=== PATIENT | male | born 1995 | race Caucasian/White ===

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

== ENCOUNTER 2018-09-20 19:52 | Emergency (ER) | payer MEDICAID ==
[2018-09-20] MEDS ORDERED: predniSONE 20 MG TAB PO STA (22:12)
--- NOTE | 2018-09-20 22:31 | ED ---
Skin/Abscess/FB HPI - General Chief complaint: Skin/Abscess/Foreign Body Stated complaint: Rash, poss allergic reaction Time Seen by Provider: 09/20/18 21:34 Source: patient Mode of arrival: ambulatory Limitations: no limitations - History of Present Illness Initial comments: 23-year-old male who denies past several history presenting today for chief complaint of "I have poison nicole". 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 He states after handling some wood he noticed a vine of poison nicole, hanging off of it. He states he is certain this was the plant. Patient states it began as a small area on the face and the left forearm. He states it then spread across chest. Patient states she has been on a steroid taper in the past for severe poison nicole, and presents today for evaluation. Patient states that the areas are weeping. Denies significant surrounding erythema. He states is itchy. He states he knows he needs to change his sheets daily and clothing. Patient denies a fever, chills or night sweats. Patient denies any genital involvement. Remainder of ROS negative, patient denies any recent cough, shortness of breath, chest pain, back pain, abdominal pain, nausea or vomiting, numbness or tingling, dysuria or hematuria, constipation or diarrhea, headaches or visual changes, or any other complaints. - Related Data Previous Rx's Medication Instructions Recorded Sulfamethox-Tmp 800-160Mg [Bactrim 1 each PO Q12HR #20 tab 10/09/16 Ds] Triamcinolone 0.1% Cream [Kenalog 1 applicatio TOPICAL BID #30 gram 10/09/16 0.1% Cream] predniSONE 0 mg PO DIRECTED 21 Days #81 tab 09/20/18 Allergies Allergy/AdvReac Type Severity Reaction Status Date / Time No Known Allergies Allergy Verified 09/20/18 21:01 Review of Systems ROS Statement: Those systems with pertinent positive or pertinent negative responses have been documented in the HPI. ROS Other: All systems not noted in ROS Statement are negative. Past Medical History Past Medical History: No Reported History History of Any Multi-Drug Resistant Organisms: None Reported Past Surgical History: No Surgical Hx Reported Past Psychological History: No Psychological Hx Reported Smoking Status: Never smoker Past Alcohol Use History: None Reported Past Drug Use History: None Reported General Exam - General Exam Comments Initial Comments: General: The patient is awake and alert, in no distress, and does not appear acutely ill. Eye: Pupils are equal, round and reactive to light, extra-ocular movements are intact. No nystagmus. There is normal conjunctiva bilaterally. No signs of icterus. Ears, nose, mouth and throat: There are moist mucous membranes and no oral lesions. Neck: The neck is supple, there is no tenderness or JVD. Cardiovascular: There is a regular rate and rhythm. No murmur, rub or gallop is appreciated. Respiratory: Lungs are clear to auscultation, respirations are non-labored, breath sounds are equal. No wheezes, stridor, rales, or rhonchi. Musculoskeletal: Normal ROM, no tenderness. Strength 5/5. Sensation intact. Pulses equal bilaterally 2+. Neurological: A&O x 3. CN II-XII intact, There are no obvious motor or sensory deficits. Coordination appears grossly intact. Speech is normal. Skin: Skin is warm and dry and no rashes or lesions are noted. Vesicles in crops on left forearm, across chest, no noted on face or hands. In addition there are diffuse patches on back. No surrounding erythema. Some mild excoriation. Psychiatric: Cooperative, appropriate mood & affect, normal judgment. Limitations: no limitations Course Vital Signs 09/20/18 09/20/18 20:58 22:39 Temperature 98.7 F 98 F Pulse Rate 91 88 Respiratory 16 18 Rate Blood Pressure 166/93 137/81 O2 Sat by Pulse 99 98 Oximetry Medical Decision Making - Medical Decision Making Physical exam findings consistent with a resin contact dermatitis. She states he is exposed to poison nicole. Patient states he has been trying topical treatments including topical steroids and anti-itch creams. He states these do not help. Patient has been on steroid taper in the past, none recently. I will begin patient on steroid taper given extent and severity of poison nicole. Patient will begin on 60 mg and taper down as instructed. Patient understands that he may not abruptly discontinue steroids, he understands the risks involved. Patient states he has plenty of topical lotions for poison nicole at home. I discussed the case Dr. Elizabeth at this time we do feel patient is stable for discharge with use of steroids as directed and primary care follow- up in the next 1-2 days. Patient is agreeable plan discharge. I discussed return parameters including wrists of secondary infections of the signs and symptoms to look out for. Patient is agreeable plan, verbalizes understanding of discharge and return parameters. Patient denied questions at this time. Disposition Clinical Impression: Poison nicole dermatitis Disposition: HOME SELF-CARE Condition: Good Instructions (If sedation given, give patient instructions): Poison Nicole (ED) Additional Instructions: Please use medication as discussed, IMPORTANT TO FOLLOW TAPER, DO NOT ABRUPTLY STOP STEROIDS, as discussed. Please follow-up with family doctor in the next 2 days.. Please return to emergency room if the symptoms increase or worsen or for any other concerns. Prescriptions: predniSONE 0 mg PO DIRECTED 21 Days #81 tab Is patient prescribed a controlled substance at d/c from ED?: No Referrals: None,Stated [Primary Care Provider] - 1-2 days [facility] - 1-2 days Time of Disposition: 22:31
[2018-09-20 22:40] VITALS: BP 137/81; PULSE 88; RESP 18; TEMP 98
== END 2018-09-20 22:39 | disposition home or self-care (01) ==
LOC: EC 19:52
DX: L23.7 Allergic contact dermatitis due to plants, except food (principal)
CPT/HCPCS: 99282; J7512